=== PATIENT | male | born 1945 | race Two or more races ===

== ENCOUNTER 2025-01-21 13:20 | Emergency (ER) | payer SELFPAY ==
--- NOTE | ~2025-01-21 | XR_ITS ---
CLINICAL HISTORY: constipation 1 view abdomen Comparison: None Findings: No pneumoperitoneum or pneumatosis. Moderate stool burden. Multiple calcifications of the pelvis are likely to be phleboliths. No acute fractures. IMPRESSION: Normal bowel gas pattern This document has been electronically signed by: Emma Deleon MD on 01/21/2025 16:49:59
--- NOTE | 2025-01-21 13:22 | ED_ITS ---
[facility] - General Adult General Chief complaint: Eye Problems Stated complaint: Eye swelling Time Seen by Provider: 01/21/25 15:02 History of Present Illness ED Provider: [facility] narrative: 79-year-old male he is Spanish speaking, information was obtained with the help of laminating machine operator helper and his daughter. Patient is presenting with rash around his left eye and some purulent discharge for the past 4 days, [place] and so they did bring him then right away because of insurance issues. No fevers or chills, he does not endorse any vision changes or intra- ocular pain. He did have some discomfort along the left submandibular area. He is also complaining of constipation epigastric abdominal pain but then he also had a bowel movement earlier today no fevers or chills or dysuria no abscess the patient reported. Related Data Previous Rx's ?Medication ?Instructions ?Recorded acyclovir 800 mg tablet 800 mg PO 5XD 7 days #35 tabs 01/21/25 ciprofloxacin HCl 0.3 % eye drops See Rx Instructions 01/21/25 ophthalmic-Left .COMPLEX #5 mL prednisone 20 mg tablet 40 mg (2 x 20 mg) PO DAILY 5 days 01/21/25 #10 tabs sucralfate 1 gram tablet (Carafate) 1 g PO Q6H 7 days #28 tabs 01/21/25 Allergies Allergy/AdvReac Type Severity Reaction Status Date / Time No Known Allergies Allergy Verified 01/21/25 13:25 Review of Systems 2 Constitutional: Constitutional: Reports as per [facility] Social History Social History Advance Directives: No Advance Directives Information Provided: Yes Physical Exam ED Vital Signs: Vital Signs - 24 hr 01/21/25 13:23 Temperature 98.7 F Pulse Rate 62 Respiratory Rate 18 Blood Pressure 136/72 Pulse Oximetry 96 Oxygen Delivery Method Room Air BMI result Body Mass Index 26.9 Const Other: * Gen: ?Overall well-appearing patient * HEENT: Patient has dry and out lesions along the nose and around the left eye, the Barriga involvement is external only nothing internal, and there is no involvement of the tympanic membranes, he has pupils that are equal reactive to light bilaterally, visual acuity done at bedside and it is intact, fluorescein was used with Wood's lamp to check for dendrites and there are no corneal abrasions or dendritic lesions noted * Neck: Supple, no LAD * CV: RRR, no obvious murmurs appreciated * Resp: ?No wheezing rales rhonchi no stridor moving air well * Abd: ?Bowel sounds are present, no tenderness no rebound no rigidity * MSK: FROM, strength 5/5 all extremities * Skin: Warm, dry, intact, * Neuro: ?Alert and oriented x3, moving upper and lower extremities symmetrically, no obvious facial asymmetry noted Course Course Course Narrative: This is a rapid medical exam performed by Berna Guerra NP: Additional HPI, ROS, PE not included below will be deferred to primary provider. 79 yo male accompanied by daughter with PMHx of presenting to the ED today due to rash on his face. states rash started 3 days ago and is pruritic, also pruritic B/L eyes. Daughter reports abdominal pain that started at the same time as the rash. Daughter reports bloating and constipation. She denies vomiting, diarrhea, chest pain, SOB, no headache, no visual changes, no recent sick contacts. PE: scabbed over rash over left side of nose ?melo's sign- shingles. Plan: labs, HSV serum, UA Medications Administered Discontinued Medications Generic Name Dose Route Start Last Admin Trade Name Freq PRN Reason Stop Dose Admin Fluorescein Sodium 1 strip 01/21/25 15:12 01/21/25 15:23 Fluorescein Sodium Strip EYE-BOTH 01/21/25 15:13 1 strip ONCE ONE Administration Tetracaine HCl 1 drop 01/21/25 15:12 01/21/25 15:23 Tetracaine Hcl 0.5% Oph Susie 5 Ml Drops EYE-BOTH 01/21/25 15:13 1 drop ONCE ONE Administration Medical Decision Making Medical Decision Making [facility] Narrative: Patient's exam is consistent with shingles involving the V1 dermatome, there is no evidence for corneal involvement, there is some purulence so I will cover him with antibiotics, there are no corneal abrasions, there is no evidence for acute angle closure glaucoma I did not perform a tracheal pressures because his pupil does not appear to be nonreactive and corneas noninjected, there is no intranasal [place] or ear involvement, the rest of the ENT examination he has some missing teeth no dental pain and reactive lymph node on the left side otherwise unremarkable neck exam no evidence for deep space infection of the oropharynx suggests peritonsillar abscess or Dejon's angina We will start him on antibiotic drops, steroids, and acyclovir, return precautions, he was complaining of some abdominal pain and so I did obtain KUB to make sure no evidence for volvulus SBO or free air, as well as ECG to make sure this is not atypical cardiac presentation. Lab Data MDM Lab Attestation statement: I reviewed the patient's lab results. 01/21/25 14:04 01/21/25 14:04 Labs: Lab Results 01/21/25 Range/Units 14:04 WBC 7.0 (4.8-10.8) X10*3/uL RBC 4.90 (4.60-5.80) X10*6/uL Hgb 15.6 (14.0-18.0) g/dl Hct 43.9 (42.0-52.0) % MCV 89.6 (80.0-98.0) fL MCH 31.8 (27.0-33.0) pg MCHC 35.5 (31.0-36.0) g/dl RDW 12.4 (11.0-16.0) % Plt Count 81 L (160-400) X10*3/uL MPV 12.2 (9.4-12.4) fL Immature Gran % (Auto) 0.3 (0.0-0.4) % Neut % (Auto) 61.9 (45-73) % Lymph % (Auto) 19.8 L (20-40) % Beadle % (Auto) 15.7 H (2-11) % Eos % (Auto) 1.7 (0-4) % Baso % (Auto) 0.6 (0-2) % Lymph # (Auto) 1.4 (1.2-4.9) X10*3/uL Beadle # (Auto) 1.1 (0.1-1.2) X10*3/uL Eos # (Auto) 0.1 (0.0-0.4) X10*3/uL Baso # (Auto) 0.0 (0.0-0.2) X10*3/uL Abs Immat Gran (auto) 0.02 (0.00-0.03) X10*3/uL Absolute Neuts (auto) 4.3 (2.0-8.3) x10*3/uL Absolute Nucleated RBC 0.000 (0.0-0.012) X10*3/uL Nucleated RBC % (auto) 0.0 (0.0-0.2) /100WBC Sodium 136 (135-145) mmol/L Potassium 4.2 (3.3-5.1) mmol/L Chloride 103 (96-108) mmol/L Carbon Dioxide 25 (22-29) mmol/L Anion Gap 12 (12-20) BUN 16 (9-16) mg/dL Creatinine 0.95 (0.5-1.4) mg/dL Estim Creat Clear Calc 55.0 Estimated GFR > 60 Random Glucose 98 (60-115) mg/dL Calcium 9.4 (8.4-10.2) mg/dL Total Bilirubin 0.9 (0.0-1.0) mg/dL AST 28 (5-37) U/L ALT 13 (0-40) U/L Alkaline Phosphatase 79 (39-117) U/L Total Protein 7.0 (6.5-8.0) g/dL Albumin 4.3 (3.5-5.0) g/dL Lipase 22 (8-78) U/L Independent Interpretation I performed an independent interpretation of an: EKG (Fifty-nine normal sinus rhythm, otherwise normal ECG without dysrhythmia, AV laura blocks or ST-T changes to suspect underlying ACS, my independent interpretation) Radiology Impression Radiologist Impression: My independent interpretation of abdominal x-ray reveals no evidence for SBO, free air, foreign bodies Discharge Plan Discharge Clinical Impression: Herpes zoster dermatitis of eyelid, Conjunctivitis Patient Disposition: Home, Self-Care Instructions: Shingles (ED), Conjunctivitis (ED) Additional Instructions: Your dad was evaluated with a rash and discharge from the left eye, also he was complaining of epigastric abdominal pain, as far as abdominal pain and make sure he does not have any obstruction but an x-ray and look normal to me and he had an EKG just to make sure that the pain he was having is not related to his heart, that was unremarkable the blood work was reassuring, I was more concerned to make sure that he does not have infection of the eye itself from her herpes virus as he is presenting with zoster of his face, I am starting him on acyclovir which is antiviral medication, ciprofloxacin eyedrops please use as directed, and steroids steroids will help with pain symptoms, also send a referral to an field service poultry technician for follow-up, and if anything else is evolving and he has worsening vision or worsening pain please come back to the ER. It was a pleasure taking care of you dad. Carafate to be used with steroids as they can upset the stomach, so take Carafate 20 minutes before taking steroids. Prescriptions: New prednisone 20 mg tablet 40 mg PO DAILY 5 Days Qty: 10 0RF ciprofloxacin HCl 0.3 % drops See Rx Instructions .ROUTE .COMPLEX Qty: 5 0RF Rx Instructions: put 1-2 drps in affected eye(s) every 2hr up to 8 times/day x2days; then 4 times/day x5days acyclovir 800 mg tablet 800 mg PO 5XD 7 Days Qty: 35 0RF Rx Instructions: space evenly during waking hours sucralfate [Carafate] 1 gram tablet 1 g PO Q6H 7 Days Qty: 28 0RF Referrals: Greg Snow [Physician] - (Patient presented with Z 1 herpes zoster with no obvious dendrites or corneal abrasions but he did have some purulence will be discharged on steroids, acyclovir and ophthalmic drops I would like him to have follow up please) Print Language: Uruguayan
[2025-01-21 13:23] VITALS: BP 136/72; PULSE 62; RESP 18; TEMP 37.1; O2SAT 96; BMI 26.9
[2025-01-21 14:14] LABS: MANUAL DIFF FLAG NO
[2025-01-21 14:21] LABS: Basophils Percent Auto 0.6 % (0-2); Eosinophils Absolute Auto 0.1 X10*3/uL (0.0-0.4); Eosinophils Percent Auto 1.7 % (0-4); Hematocrit 43.9 % (42.0-52.0); Hemoglobin 15.6 g/dl (14.0-18.0); Imm Gran Abs Auto 0.02 X10*3/uL (0.00-0.03); Imm Gran Pct Auto 0.3 % (0.0-0.4); Lymphocytes Absolute Auto 1.4 X10*3/uL (1.2-4.9); Lymphocytes Percent Auto 19.8 % (20-40); Mean Corpuscular HGB Conc 35.5 g/dl (31.0-36.0); Mean Corpuscular Hemoglobin 31.8 pg (27.0-33.0); Mean Corpuscular Volume 89.6 fL (80.0-98.0); Mean Platelet Volume 12.2 fL (9.4-12.4); Monocytes Absolute Auto 1.1 X10*3/uL (0.1-1.2); Monocytes Percent Auto 15.7 % (2-11); Neutrophils Absolute Auto 4.3 x10*3/uL (2.0-8.3); Neutrophils Percent Auto 61.9 % (45-73); Red Cell Distribution Width 12.4 % (11.0-16.0)
[2025-01-21 14:22] LABS: Platelet Count 81 X10*3/uL (160-400)
[2025-01-21 14:28] LABS: Alanine Aminotransferase 13 U/L (0-40); Albumin Level 4.3 g/dL (3.5-5.0); Alkaline Phosphatase 79 U/L (39-117); Anion Gap 12 (12-20); Aspartate Amino Transferase 28 U/L (5-37); Bilirubin Total 0.9 mg/dL (0.0-1.0); Blood Urea Nitrogen 16 mg/dL (9-16); Calcium 9.4 mg/dL (8.4-10.2); Carbon Dioxide 25 mmol/L (22-29); Chloride 103 mmol/L (96-108); Estimated Glomerular Filt Rate > 60; Glucose Random 98 mg/dL (60-115); Lipase 22 U/L (8-78); Potassium 4.2 mmol/L (3.3-5.1); Sodium 136 mmol/L (135-145)
--- NOTE | 2025-01-21 15:16 | ECG_ITS ---
Test Reason : eye problem Blood Pressure : */* mmHG Vent. Rate : 59 BPM Atrial Rate : 59 BPM P-R Int : 156 ms QRS Dur : 78 ms QT Int : 414 ms P-R-T Axes : 45 50 54 degrees QTcB Int : 409 ms Sinus bradycardia Minimal voltage criteria for LVH, may be normal variant ( Sokolow-Badillo ) Borderline ECG No previous ECGs available Referred By: Rishabh Villalobos Electronically Signed By: JENNA RUDD
[2025-01-21] MEDS: Fluorescein Sodium STRIP 1 STRIP EYE-BOTH (15:23)
[2025-01-21] MEDS: Tetracaine HCl 0.5% Oph Sol 5 ML DROPS 1 DROP EYE-BOTH (15:23)
[2025-01-21 16:26] VITALS: BP 145/72; PULSE 59; RESP 18; TEMP 37.1; O2SAT 97
[2025-01-21 17:02] VITALS: BP 169/75; PULSE 63; RESP 16; TEMP 36.8; O2SAT 94
[2025-01-22 23:17] LABS: Herpes Simplex Type 2 IgG <0.90 index
== END 2025-01-21 17:03 | disposition home or self-care (01) ==
PROVIDERS: Registered Nurse Emergency; Emergency Provider Emergency Medicine
DX: B02.39 Other herpes zoster eye disease (principal); B02.31 Zoster conjunctivitis; H57.12 Ocular pain, left eye; R10.13 Epigastric pain
CPT/HCPCS: 36415; 74018; 80053; 83690; 85025; 86695; 86696; 93005; 99283; 99284

== ENCOUNTER → 2025-01-21 15:16 | Outpatient (BNV) | payer SELFPAY | PROVIDERS: Emergency Provider Emergency Medicine; Visit Provider Internal Medicine | DX: R00.1 Bradycardia, unspecified (principal); R94.31 Abnormal electrocardiogram [ECG] [EKG] | CPT/HCPCS: 93010 ==

== ENCOUNTER → 2025-01-21 15:16 | Outpatient (BNV) | payer SELFPAY | PROVIDERS: Emergency Provider Emergency Medicine; Visit Provider Nuclear Medicine | DX: K59.00 Constipation, unspecified (principal) | CPT/HCPCS: 74018 ==